=== PATIENT | female | born 1960 | race African-American/Black ===

== ENCOUNTER 2019-04-04 11:46 | Outpatient (CLI) | payer OTHER, SELFPAY ==
--- NOTE | 2019-04-04 11:51 | ECG_ITS ---
Measurements Intervals [place] Rate: 57 P: 7 MO: 154 QRS: 22 QRSD: 88 T: 18 QT: 392 QTc: 384 Interpretive Statements SINUS BRADYCARDIA NONSPECIFIC T-WAVE ABNORMALITY- INFERIOR LEADS BASELINE ARTIFACT- I, II, III, AVR, AVL, AVF, V1-V6 BORDERLINE ECG Electronically Signed On 04-04-2019 12:21:26 SCRAPER BURRER by Valentino Guzman D.O.
== END 2019-04-04 11:47 | disposition home or self-care (01) ==
LOC: ANHSURGERY 11:51
PROVIDERS: PCP Family Medicine; Visit Provider Orthopaedic Surgery
DX: I10 Essential (primary) hypertension (principal); R94.31 Abnormal electrocardiogram [ECG] [EKG]
CPT/HCPCS: 93005

== ENCOUNTER 2019-04-11 02:14 | Day surgery (SDC) | payer OTHER, SELFPAY ==
[2019-03-27 14:37] VITALS: BMI 34.0
--- NOTE | 2019-04-10 13:53 | WPDANESEPPF ---
Anes - Initial Pre Proc Eval Procedure: Operation Date: 04/11/19 07:30 Proposed Procedures p Left Hallux Valgus Correction with First Metatarsal Osteotomy, Possible Phalangeal Osteotomy - Faheem Moreno MD Date/Time: 04/10/19 13:53 Surgeon: Faheem Moreno MD Pre Op Diagnosis: Left Hallux Valgus Patient Data Age: 59 Gender: F Height: 1.55 m Weight: 81.65 kg Allergies Allergy/AdvReac Type Severity Reaction Status Date / Time No Known Allergies Allergy Unknown NONE Verified 03/27/19 14:38 Home Medications Medication Instructions Recorded Confirmed Type Vitamin C 1 tablet PO DAILY 03/27/19 03/27/19 History aspirin 81 mg PO DAILY 03/27/19 03/27/19 History biotin 1 tablet PO DAILY 03/27/19 03/27/19 History lisinopril 20 mg PO DAILY 03/27/19 03/27/19 History magnesium 1 tablet PO DAILY 03/27/19 03/27/19 History vitamin A 1 cap PO DAILY 03/27/19 03/27/19 History zinc 1 tablet PO DAILY 03/27/19 03/27/19 History Patient hx anesthesia problems: none Family hx anesthesia problems: none PMFSH Past Medical History Medical History (Updated 04/10/19 @ 13:54 by Cipriano Tompkins MD) Acquired hallux valgus of left foot Anxiety Headache Hypertension Obesity Pulmonary embolism Seasonal allergies Sleep disorder Stomach pain Toe fracture, right (03/26/19) Vision abnormalities Weight gain Family History Family History (Updated 03/28/19 @ 10:45 by Kamini Bain, RT(R)) Other Arthritis Cancer Hypertension Social History Social History (Updated 03/28/19 @ 10:46 by Kamini Bain, RT(R)) Alcohol intake: current Anes - Eval Final PreProcedure Day of Procedure 04/10/19 13:53 Patient weight: obese Heart: regular rate and rhythm Lungs: clear to auscultation and normal air movement Airway: Mallampati scale class II Neurological: alert and oriented Last oral intake: >/= 8 hours ASA classification: III Emergent: no Anesthetic plan: proceed Anesthesia type and monitoring: general LMA Informed Consent: The patient's anesthetic plan and its attendant risks and benefits were discussed with the patient/family/POA. Questions were solicited and answers provided to the satisfaction of the patient/family/POA.
[2019-04-11] VITALS (8 sets, daily range): BP systolic 111–121; BP diastolic 52–72; PULSE 55–88; RESP 12–18; TEMP 36.3–36.6; O2SAT 99–100
--- NOTE | ~2019-04-11 | XR_ITS ---
EXAMINATION: XR surgery orthopedic DATE: 04/11/2019 09:31 INDICATION: Left first hallux correction TECHNIQUE: 2 fluoroscopic spot images of the left forefoot were obtained during procedure performed mick Moreno. Radiologist was not present for the imaging or procedure. The amount of fluoroscopy ti me used during this procedure was 0.3 minutes. COMPARISON: None. FINDINGS: Bunionectomy and realignment osteotomy at the neck of the left first metatarsal. The visualized porti on of the axis of the first ray appears near-anatomic. There is expected postoperative gas in the germaine rounding soft tissues. Mild osteoarthritis at the first metatarsophalangeal joints. Remainder of the visualized forefoot is unremarkable. IMPRESSION: 1. Fluoroscopy utilized during bunionettectomy and first metatarsal realignment osteotomy. See proced ure note for further detail. Reviewed, dictated and finalized at location A. NSIC COMPUTER EXAMINER IMPRESSION: 1. Fluoroscopy utilized during bunionettectomy and first metatarsal realignment osteotomy. See procedure note for further detail.
--- NOTE | ~2019-04-11 | XR_ITS ---
EXAMINATION: XR foot RT 2V DATE: 04/11/2019 09:31 INDICATION: Right foot pain TECHNIQUE: 2 fluoroscopic spot images of the right forefoot were obtained. COMPARISON: 03/27/2019 FINDINGS: Old realignment osteotomy and bunionectomy at the distal first metatarsal which has healed in near an atomic alignment. Old healed fracture of the fourth proximal phalanx which also appears to be healed in near-anatomic alignment. No acute fracture. Mild osteoarthritis at the first metatarsophalangeal j oint. IMPRESSION: 1. Near-anatomic alignment of chronic healed fourth proximal phalangeal fracture and bunionectomy and realignment osteotomy at the first metatarsal. Reviewed, dictated and finalized at location A. SLINGER IMPRESSION: 1. Near-anatomic alignment of chronic healed fourth proximal phalangeal fractur e and bunionectomy and realignment osteotomy at the first metatarsal.
[2019-04-11] MEDS: LACTATED RINGERS 1,000 ML 30 ML IV CONT (07:10)
[2019-04-11] MEDS: IBUPROFEN IV 800 MG/200 ML 800 MG/200 ML BAG 400 MG IVPB (07:15)
[2019-04-11] MEDS: ceFAZolin 2 GM/D5W 50 ML 2 GM/50 ML BAG IVPB (07:23)
--- NOTE | 2019-04-11 07:25 | WPDHPUPDATE1 ---
History and Physical Update Update Date/Time: 04/11/19 07:25 History and Physical has been reviewed, including an updated exam of the patient. There are NO changes in the patient's condition. Risks, benefits, and alternatives have been discussed and questions answered. Patient agrees to proceed with procedure.
--- NOTE | 2019-04-11 09:21 | PM.PROC ---
Procedure Note - Detailed Date of procedure: 04/11/19 Pre-op diagnosis: Left Hallux Valgus DIAGNOSIS: Left Hallux Valgus (M20.11) PROCEDURE: [employer] (90360) IMPLANTS USED: Arthrex 2.0mm bioabsorbable trim-it pin x 2 OPERATIVE INDICATIONS: The patient is a 59 year-old with left hallux valgus deformity, prominence of the medial eminence, and left foot pain. The patient has failed conservative treatment with shoe inserts, accommodative shoes, activity modifications and medication. The patient has pain with daily activity. Symptoms have caused restriction in the patient's activity. The patient presents for operative treatment. WHAT WAS DONE: After informed consent was given, the operative extremity was marked in the preoperative holding area. The patient received intravenous antibiotics. The patient was brought to the operating room where they underwent a general anesthetic by the anesthesia team. The patient was positioned supine on the operating room table. A time-out was performed confirming the patient, site of the surgery, and the plan for surgery. The left lower extremity was then prepped and draped in the usual sterile surgical fashion using ChloraPrep skin solution. Foot and ankle were exsanguinated and a calf tourniquet was inflated to 225 mmHg pressure. A longitudinal incision was then made along the medial border of the 1st ray centered over the medial eminence with a #15 blade knife. Hemostasis was controlled with electric cautery. The dorsal and plantar sensory nerves were identified and retracted bluntly. A medial capsulotomy was then performed. This was reflected off the medial eminence. The joint was inspected for evaluation of degenerative changes. A lateral release was then performed through the joint with a #15 blade knife. The medial eminence was then resected with a sagittal saw in line with the medial border of the foot. Correction of the deformity was performed with a chevron-shaped osteotomy performed with sagittal saw from medial to lateral through the distal portion of the 1st metatarsal. The lateral portion of the bone cut was completed with an osteotome to protect the soft tissue. The capital fragment was then translated laterally and impacted on to the 1st metatarsal shaft. Lateral translation and impaction corrected both hallux valgus deformity and correction of the distal metatarsal articular angle. Temporary fixation was performed and alignment was verified with image intensification. Hallux valgus angle correction, intermetatarsal angle correction and distal metatarsal articular angle were verified. Fixation was achieved with 2.0 millimeter bioabsorbable pins. Two pins were utilized. Image intensification confirmed final alignment. Rotation was verified visually. The wound was then thoroughly irrigated with antibiotic solution. The capsule was repaired through a drill hole in the distal 1st metatarsal with 0 Vicryl interrupted suture. The dorsal limb of the capsule was repaired with 00 Vicryl interrupted suture. Subcutaneous tissue was repaired with 000 Monocryl interrupted suture and the skin approximated with 0000 nylon running suture. Local anesthetic with 0.5% Marcaine plain was injected in the soft tissue. Sterile dressing was then applied. Tourniquet was released and good capillary refill in the hallux was verified. The patient was then awoken from anesthesia, extubated in the operating room, and taken to the recovery room in stable condition. All sponge, needle, and instrument counts were correct at the end of the case. Flouro done on right foot. Confirms well maintained alignment 3rd toe prox phalanx fx. Post-op diagnosis: same Procedure performed: LT HV Recon Implants: Arthrex 2.0 mm trim it pin X 2 Anesthesia: GLMA Surgeon: Faheem Moreno MD Account Services Manager: 1st Account Services Manager Estimated blood loss (mL): 5 Tourniquet time (min): 47 Drains: No Packing: No Pathology: none sent Complications: None Condition: stable Disp
== END 2019-04-11 10:29 | disposition home or self-care (01) ==
PROVIDERS: Visit Provider Orthopaedic Surgery
PROC: (CPT 28299; principal; 2019-04-11 07:30)
DX: M20.12 Hallux valgus (acquired), left foot (principal); I10 Essential (primary) hypertension; F41.9 Anxiety disorder, unspecified; Z86.711 Personal history of pulmonary embolism; Z79.82 Long term (current) use of aspirin; E66.9 Obesity, unspecified; Z68.33 Body mass index [BMI] 33.0-33.9, adult
CPT/HCPCS: 28296; 73620; C1713; J0690; J1100; J1741; J2250; J2405; J2704; J3010; J7120

== ENCOUNTER 2019-09-03 14:24 | Outpatient (CLI) | payer OTHER, SELFPAY ==
--- NOTE | ~2019-09-03 | MR_ITS ---
EXAMINATION: MRA brain wo con DATE: 09/03/2019 15:29 INDICATION: Headache. TECHNIQUE: Magnetic resonance angiography (MRA) of the brain was performed without intravenous contra st with T1-weighted SPGR by the 3D [id number] technique. Maximum intensity projection 3D-reconstr uctions were obtained. COMPARISON: Brain MRI 12/03/2013 FINDINGS: The vertebral arteries are codominant. There is no significant stenosis of basilar artery or the post erior cerebral arteries. There is no significant stenosis of the intracranial internal carotid arteri es or anterior or middle cerebral arteries. Anterior communicating artery is normal. Right posterior communicating artery is normal. A left posterior communicating artery is not identified. There is no aneurysm. IMPRESSION: 1. Normal MRA. Reviewed, dictated and finalized at location A. IMPRESSION: 1. Normal MRA.
--- NOTE | ~2019-09-03 | MR_ITS ---
EXAMINATION: MR brain/brain stem wo/w con DATE: 09/03/2019 15:34 INDICATION: Headache. TECHNIQUE: Magnetic resonance imaging (MRI) of the brain and brainstem was performed without and with 15 mm MultiHance intravenous contrast. Sequences included sagittal and axial T1-weighted FSE, axial diffusion-weighted FS EPI, axial T2*-weighted GRE, axial T2-weighted FLAIR Propeller, and axial T2-we ighted Propeller. Postcontrast sequences included axial and coronal T1-weighted FSE. Apparent diffusi on coefficient (ADC) maps were created. COMPARISON: Brain MRI 12/03/2013 FINDINGS: There are scattered areas of nonspecific increased T2-weighted signal intensity in the cere bral white matter without change, which is within normal limits for the patient's age. There is no in tracranial hemorrhage, acute infarction, or abnormal intracranial mass lesion. The ventricles are nor mal in size. The paranasal sinuses are clear. The orbits are normal. The mastoid air cells are normal . IMPRESSION: 1. Normal aging brain. Reviewed, dictated and finalized at location A. IMPRESSION: 1. Normal aging brain.
[2019-09-03 15:16] LABS: Estimated Glomerular Filt Rate > 60
== END 2019-09-03 14:25 ==
DX: G44.219 Episodic tension-type headache, not intractable (principal)
CPT/HCPCS: 36415; 70544; 70553; A9577

== ENCOUNTER 2019-11-05 09:08 | Outpatient (CLI) | payer OTHER, SELFPAY ==
--- NOTE | ~2019-11-05 | US_ITS ---
EXAMINATION: US abdomen complete EXAM DATE: 11/05/2019 09:40 INDICATION: Epigastric and right upper quadrant pain family history of pancreatic cancer. TECHNIQUE: Multiple grayscale and Doppler images of the complete abdomen were obtained (by a technolo gist who performed the scan) and subsequently reviewed. Comparison is made to prior examination from 06/17/2008. FINDINGS: The abdominal aorta is normal in caliber. Visualized portion IVC is patent. The pancreatic head a nd body are normal in appearance. The pancreatic tail is not visualized. The liver has normal echogenicity and contour. There are no focal liver lesions identified. There is no evidence of intrahepatic biliary duct dilation. Portal venous flow was seen in the hepatopedal , normal direction and has normal Doppler waveform. Common bile duct measures 3 mm, which is normal. The gallbladder wall is normal in thickness, with ex pected amount of distention. No sonographic evidence of pericholecystic fluid. There is no cholelit hiases. Technologist performing exam reports patient did not demonstrate sonographic Delatorre's sign. Please note that this sign is less reliable in patients who have received pain medication. Right kidney: There is normal contour and echogenicity. It measures 9.4 x 5.0 x 5.6 centimeters. T here are no focal renal lesions identified. There is no hydronephrosis. Left kidney: There is normal contour and echogenicity. It measures 9.2 x 6.0 x 6.0 centimeters. Th ere are no focal renal lesions identified. There is no hydronephrosis. The spleen measures 11.5 x 2.3 centimeters and is morphologically normal. IMPRESSION: 1. Unremarkable complete abdominal ultrasound exam. Reviewed, dictated and finalized at location A.
== END 2019-11-05 09:09 ==
PROVIDERS: PCP Family Medicine
DX: R10.13 Epigastric pain (principal); R10.33 Periumbilical pain
CPT/HCPCS: 76700

== ENCOUNTER 2019-11-05 09:13 | Outpatient (CLI) | payer OTHER, SELFPAY ==
--- NOTE | ~2019-11-05 | XR_ITS ---
EXAMINATION: XR wrist LT min 3V DATE: 11/05/2019 09:49 INDICATION: Left wrist swelling. TECHNIQUE: 4 views of left wrist were obtained. COMPARISON: None. FINDINGS: Bone alignment is normal. No fracture. There is mild osteoarthritis of first carpometacarpa l joint. IMPRESSION: 1. Mild osteoarthritis of first carpometacarpal joint. Reviewed, dictated and finalized at location A.
== END 2019-11-05 09:14 ==
PROVIDERS: PCP Family Medicine; Visit Provider Family Medicine
DX: M25.432 Effusion, left wrist (principal); M19.032 Primary osteoarthritis, left wrist
CPT/HCPCS: 73110

== ENCOUNTER 2019-12-20 14:08 | Outpatient (CLI) | payer OTHER, SELFPAY ==
--- NOTE | ~2019-12-20 | CT_ITS ---
EXAMINATION: CT abdomen w con DATE: 12/20/2019 14:34 INDICATION: Right upper quadrant and epigastric abdominal pain. Status post laparoscopic cholecystect wilbur. TECHNIQUE: Computed tomography (CT) of the abdomen was performed with 100 cc Omnipaque 350 intravenou s contrast. Automated exposure control and iterative reconstruction technique were employed. Exam dos e: 529.53 mGy-cm total exam DLP. COMPARISON: 11/05/2019 complete abdominal ultrasound FINDINGS: The lung bases are clear of infiltrate or consolidation. Normal heart size. No pericardial or pleural effusion. There is a small sliding hiatal hernia. Status post cholecystectomy. No hepatic, splenic, pancreatic, adrenal or renal space occupying mass lesion is detected. No bile d uct or pancreatic duct dilatation. Normal caliber of the abdominal aorta. No intraperitoneal or retroperitoneal mass lesion or lymphade nopathy. No ascites. There are multiple diverticula of the left and right colon; no evidence of diverticulitis. No bowel obstruction or free air. There is degenerative change at the apophyseal joints with grade 1 anterolisthesis at L5-S1. There is a transitional S1 vertebra with pseudarthrosis of transverse elements bilaterally. IMPRESSION: Small sliding hiatal hernia Status post cholecystectomy Diverticulosis of the left and right colon Reviewed, dictated and finalized at Location A. Reviewed, dictated and finalized at location A. FLUMER
[2019-12-20 14:27] LABS: Estimated Glomerular Filt Rate > 60
== END 2019-12-20 14:09 ==
PROVIDERS: PCP Family Medicine; Visit Provider Surgery
DX: K44.9 Diaphragmatic hernia without obstruction or gangrene (principal); K57.30 Diverticulosis of large intestine without perforation or abscess without bleeding; Z90.49 Acquired absence of other specified parts of digestive tract
CPT/HCPCS: 74160; Q9967

== ENCOUNTER 2020-02-13 11:07 | Outpatient (CLI) | payer OTHER, SELFPAY ==
--- NOTE | ~2020-02-13 | XR_ITS ---
EXAMINATION: XR chest 2V 02/13/2020 11:23 INDICATION: Fever. PROCEDURE: 2 view chest COMPARISON: No prior studies for comparison. FINDINGS: The lungs are clear. The cardiomediastinal silhouette is within normal limits. There are no pleural effusions. There is no pneumothorax suspected. IMPRESSION: 1: NO ACUTE CARDIOPULMONARY DISEASE. Reviewed, dictated and finalized at location A. ILE SUPPLY TECHNICIAN
== END 2020-02-13 11:08 ==
PROVIDERS: PCP Family Medicine; Visit Provider Family Medicine
DX: R50.9 Fever, unspecified (principal)
CPT/HCPCS: 71046

== ENCOUNTER 2020-06-08 09:39 | Outpatient (CLI) | payer OTHER, SELFPAY ==
--- NOTE | ~2020-06-08 | CT_ITS ---
EXAMINATION: CT abdomen pelvis w con EXAM DATE: 06/08/2020 10:34 INDICATION: RT flank pain wraps around RLQ into groin x1mo -gone 1wk. TECHNIQUE: Spiral CT of the abdomen and pelvis was performed following intravenous injection of 100 m L Omnipaque 350. Axial, coronal and sagittal images of the abdomen and pelvis were reviewed. The do se-length product (DLP) for this examination was 892.42 mGy-cm. The exposure was tailored according to patient size (auto mA exposure control), and iterative reconstruction (ASIR) was used as additiona l dose reduction technique. Comparison is made to prior examination from 12/20/2019. FINDINGS: The liver, spleen, adrenal glands and pancreas are unremarkable. There are cholecystectomy clips. Portal and splenic veins are patent. Kidneys enhance symmetrically. There is no hydronephr osis. The uterus is not identified and has likely been surgically resected. The bladder is unremar kable. There is no retroperitoneal or pelvic lymphadenopathy. No inguinal hernias. The appendix is normal. There is mild scattered colonic diverticulosis. There is no adjacent inflamm atory change to suggest diverticulitis. There is small sliding gastroesophageal hiatal hernia. There is expected amount of colonic stool. No free intraperitoneal gas. The heart is normal in size. There are no pericardial or pleural effusions. The lung bases are unremarkable. There are no osteob lastic or osteolytic lesions identified. IMPRESSION: 1. No acute intra-abdominal findings. 2. Small hiatal hernia. 3. Mild colonic diverticulosis. Reviewed, dictated and finalized at location B.
[2020-06-08 10:11] LABS: Estimated Glomerular Filt Rate > 60
== END 2020-06-08 09:40 ==
LOC: MICIMG 09:40
PROVIDERS: Visit Provider Family Medicine
DX: R10.31 Right lower quadrant pain (principal); K44.9 Diaphragmatic hernia without obstruction or gangrene; K57.30 Diverticulosis of large intestine without perforation or abscess without bleeding
CPT/HCPCS: 74177; Q9967